=== PATIENT | female | born 1975 | race African-American/Black ===

== ENCOUNTER 2020-07-12 14:23 | Emergency (ER) | payer OTHER ==
[~2020-07-12] VITALS: Ht 165.1 cm; Wt 99.8 kg
[2020-07-12 15:12] LABS: ABSOLUTE NEUTROPHILS 7.4 thou/uL (1.4-8.2); BASOPHILS 0.6 % (0.0-2.0); EOSINOPHILS 1.7 % (0.0-3.0); HEMATOCRIT 36.7 % (37.0-47.0); HEMOGLOBIN 12.2 gm/dL (12.0-15.0); LYMPHOCYTES 17.5 % (24.0-44.0); MCH 29.2 pg (26.0-34.0); MCHC 33.2 g/dL (28.0-37.0); MCV 88.1 fL (80.0-100.0); MONOCYTES 7.3 % (1.0-8.0); PLATELET COUNT 307 thou/uL (150-400); POLYS 72.9 % (36.0-66.0); RBC 4.17 mil/uL (4.20-5.00); RDW 12.9 % (10.5-14.5); WBC 10.1 thou/uL (4.0-11.0)
[2020-07-12 15:25] LABS: ANION GAP 13 mmol/L (7-16); BUN 13 mg/dL (7-18); CALCIUM 9.1 mg/dL (8.5-10.1); CHLORIDE 98 mmol/L (98-107); CO2 25 mmol/L (21-32); CREATININE 1.4 mg/dL (0.6-1.0); GLUCOSE 98 mg/dL (74-106); POTASSIUM 4.3 mmol/L (3.5-5.1); SODIUM 136 mmol/L (136-145)
[2020-07-12] MEDS ORDERED: LAMICTAL ODT200 MG PO (15:25)
[2020-07-12] MEDS ORDERED: CARDIZEM LA240 M1 PO (15:26)
[2020-07-12] MEDS ORDERED: SPIRONOLACTONE100 M1 PO (15:26)
[2020-07-12 15:35] LABS: URINE BILIRUBIN NEGATIVE (Negative); URINE BLOOD TRACE (Negative); URINE CLARITY CLEAR; URINE COLOR YELLOW; URINE GLUCOSE-RANDOM* NEGATIVE (Negative); URINE KETONES NEGATIVE (Negative); URINE LEUKOCYTES-REFLEX NEGATIVE (Negative); URINE NITRITE-REFLEX NEGATIVE (Negative); URINE PROTEIN (DIPSTICK) NEGATIVE (Negative); URINE SPECIFIC GRAVITY <= 1.005 (1.005-1.035); URINE UROBILINOGEN 0.2 E.U./dl (0.2-1.0)
[2020-07-12 15:36] LABS: ALBUMIN 3.7 g/dL (3.4-5.0); SGOT 39 U/L (15-37); SGPT 30 U/L (30-65); TOTAL BILIRUBIN 0.5 mg/dL (0.2-1.0); TOTAL PROTEIN 8.2 g/dL (6.4-8.2); TROPONIN-I <0.06 ng/mL (<0.06)
--- NOTE | 2020-07-12 16:07 | EKG ---
[facility] [place] [address] ELECTROCARDIOGRAM REPORT Name: PAT NAZARIO Room #: REG [facility]#: [id number] Admission: 07/12/20 Attend Phys: Discharge: Date of : 79 Report #: [id number] THIS REPORT FOR: cc: Navi Littlejohn MD, Andrea C. MD Santiago, Patrick MD [facility] ~ THIS REPORT FOR: //name// [facility] ED Test Date: 2020-07-12 Test Time: 14:55:00 Pat Name: PAT NAZARIO Department: Room: Gender: F Network Developer: : 1975 Requested By: Cj Chan Order Number: [id number] MD: Maury Jiang Measurements Intervals [place] Rate: 89 P: 60 ME: 133 QRS: 26 QRSD: 84 T: 50 QT: 361 QTc: 440 Interpretive Statements Sinus rhythm Abnormal R-wave progression, early transition No previous ECG available for comparison Electronically Signed On 07-12-2020 16:07:35 CDT by Maury Jaing [email or web address] <ELECTRONICALLY SIGNED> By: Maury Jiang MD, [facility] 07/12/20 1607 1455 1455 Maury Jiang MD, FACC /EPI
[2020-07-12 16:56] VITALS: BP 116/77
== END 2020-07-12 16:57 | disposition home or self-care (01) ==
LOC: ER 14:23
PROVIDERS: Emergency Medicine
DX: R55 Syncope and collapse (principal); R79.89 Other specified abnormal findings of blood chemistry; R51 Headache; I10 Essential (primary) hypertension; E66.9 Obesity, unspecified; Z79.899 Other long term (current) drug therapy; Z88.0 Allergy status to penicillin; Z68.36 Body mass index [BMI] 36.0-36.9, adult

== ENCOUNTER → 2020-08-04 | Outpatient (CLI) | payer OTHER ==
[~2020-08-04] MED LIST: CARDIZEM LA240 M1 PO; LAMICTAL ODT200 MG PO; SPIRONOLACTONE100 M1 PO
== END ==
LOC: LAB 11:46
DX: Z20.828 Contact with and (suspected) exposure to other viral communicable diseases (principal)

== ENCOUNTER → 2020-10-16 | Outpatient (CLI) | payer OTHER | LOC: LAB 14:23 | PROVIDERS: ATTEND Specialist | DX: Z20.828 Contact with and (suspected) exposure to other viral communicable diseases (principal) ==

== ENCOUNTER → 2020-10-24 | Outpatient (CLI) | payer OTHER | LOC: LAB 14:54 | PROVIDERS: ATTEND Specialist | DX: Z20.828 Contact with and (suspected) exposure to other viral communicable diseases (principal) ==

== ENCOUNTER → 2020-10-30 | Outpatient (CLI) | payer OTHER | LOC: LAB 13:59 | PROVIDERS: ATTEND Specialist | DX: Z01.812 Encounter for preprocedural laboratory examination (principal); Z20.828 Contact with and (suspected) exposure to other viral communicable diseases ==

== ENCOUNTER → 2020-11-06 | Outpatient (CLI) | payer OTHER | LOC: LAB 14:33 | PROVIDERS: ATTEND Specialist | DX: Z20.822 Contact with and (suspected) exposure to COVID-19 (principal) ==

== ENCOUNTER → 2020-11-13 | Outpatient (CLI) | payer OTHER | LOC: LAB 15:08 | PROVIDERS: ATTEND Specialist | DX: Z20.822 Contact with and (suspected) exposure to COVID-19 (principal) ==

== ENCOUNTER → 2021-02-25 | Outpatient (CLI) | payer OTHER ==
[2021-02-25 15:32] LABS: ABSOLUTE NEUTROPHILS 6.2 thou/uL (1.4-8.2); BASOPHILS 0.7 % (0.0-2.0); EOSINOPHILS 1.4 % (0.0-3.0); HEMATOCRIT 38.3 % (37.0-47.0); LYMPHOCYTES 29.2 % (24.0-44.0); MCH 29.5 pg (26.0-34.0); MCV 86.7 fL (80.0-100.0); MONOCYTES 5.4 % (1.0-8.0); PLATELET COUNT 320 thou/uL (150-400); POLYS 63.3 % (36.0-66.0); RBC 4.42 mil/uL (4.20-5.00); RDW 13.8 % (10.5-14.5); WBC 9.9 thou/uL (4.0-11.0)
[2021-02-25 16:02] LABS: ALBUMIN 3.7 g/dL (3.4-5.0); ANION GAP 15 mmol/L (7-16); BUN 14 mg/dL (7-18); CALCIUM 9.3 mg/dL (8.5-10.1); CHLORIDE 101 mmol/L (98-107); CHOLESTEROL 244 mg/dL (<200); CO2 24 mmol/L (21-32); CREATININE 1.2 mg/dL (0.6-1.0); GLUCOSE 92 mg/dL (74-106); HDL CHOLESTEROL 86 mg/dL (>40); LDL CHOLESTEROL 136 mg/dL (<100); POTASSIUM 3.8 mmol/L (3.5-5.1); SGOT 16 U/L (15-37); SGPT 23 U/L (30-65); SODIUM 140 mmol/L (136-145); TC:HDL 2.8 Ratio (Not establshd); TOTAL BILIRUBIN 0.5 mg/dL (0.2-1.0); TOTAL PROTEIN 8.3 g/dL (6.4-8.2); TRIGLYCERIDE 110 mg/dL (<150); VLDL 22 mg/dL (<40)
[2021-02-26 13:08] LABS: ANTI-DNA SCREEN 1 IU/mL (0-9); ANTI-RNP <0.2 AI (0.0-0.9)
== END ==
LOC: LAB 13:25
PROVIDERS: ATTEND Preventive Medicine Public Health & General Preventive Medicine
DX: Z02.1 Encounter for pre-employment examination (principal); R42 Dizziness and giddiness

== ENCOUNTER → 2021-08-28 | Outpatient (CLI) | payer OTHER | LOC: RAD 10:27 | PROVIDERS: ATTEND Preventive Medicine Public Health & General Preventive Medicine | DX: R06.89 Other abnormalities of breathing (principal); R06.00 Dyspnea, unspecified ==

== ENCOUNTER → 2021-12-13 | Outpatient (CLI) | payer OTHER | LOC: RAD 11:46 | PROVIDERS: ATTEND Preventive Medicine Public Health & General Preventive Medicine | DX: Z12.31 Encounter for screening mammogram for malignant neoplasm of breast (principal) ==

== ENCOUNTER → 2021-12-18 | Outpatient (CLI) | payer OTHER | LOC: ULTRA 09:36 | PROVIDERS: ATTEND Preventive Medicine Public Health & General Preventive Medicine | DX: N60.02 Solitary cyst of left breast (principal); R92.2 Inconclusive mammogram ==